=== PATIENT | male | born 1990 | race Caucasian/White ===

== ENCOUNTER 2022-08-09 08:07 | Outpatient (CLI) | payer BC, SELFPAY ==
--- NOTE | ~2022-08-09 | MR_ITS ---
MRI of the brain Clinical History: Blurry vision Technique: Axial and sagittal T1-weighted images were acquired. These were followed by axial T2-weigh yordy, diffusion weighted, gradient, and FLAIR images. Findings: No abnormal signal seen in the brain parenchyma. No acute infarct, intracranial hemorrhage, or mass lesion. Ventricles and subarachnoid spaces are unremarkable. Orbits are unremarkable. Minimal right ethmoid s inus disease noted. Remaining paranasal sinuses and mastoid air cells are clear. Major intracranial f low voids appear intact. Sagittal midline structures are intact. IMPRESSION: No significant abnormality seen. Reviewed, dictated and finalized at location . [employer]
== END 2022-08-09 08:08 | disposition home or self-care (01) ==
LOC: CHSIMG 08:09
PROVIDERS: PCP Family Medicine; Visit Provider Family Medicine
DX: H53.8 Other visual disturbances (principal)
CPT/HCPCS: 70551